=== PATIENT | male | born 1960 | race Two or more races ===

== ENCOUNTER → 2016-11-12 | Outpatient (CLI) | payer OTHER | LOC: M SMT 15:34 | PROVIDERS: ATTEND Nurse Practitioner Women's Health | DX: Z12.5 Encounter for screening for malignant neoplasm of prostate (principal); R31.29 Other microscopic hematuria ==

== ENCOUNTER 2023-07-13 05:48 | Inpatient (IN) | payer MEDICARE ==
[2023-07-13] VITALS (8 sets, daily range): BP systolic 119–135; BP diastolic 59–83; TEMP 97.5–98.2; O2SAT 94–98
[~2023-07-13] VITALS: Ht 182.9 cm; Wt 57.1 kg
[~2023-07-13 05:48] MED LIST: ACET-907 PO; MIRA3350 PO; SENN-23 PO
[2023-07-13] MEDS ORDERED: LR 1,000 ML IV SCH (06:25)
[2023-07-13] MEDS: ALVIMOPAN 12 MG CAPSULE (ENTEREG) PO ONE (07:05)
[2023-07-13] MEDS: CelecoXIB 400 MG CAP PO ONE (07:05)
[2023-07-13] MEDS ORDERED: LIDOCAINE 2% 100MG/5ML SDV (FOR ANES.) As Ordered ONE (07:18)
[2023-07-13] MEDS ORDERED: propofoL 200 MG/20 ML VIAL As Ordered ONE (07:18)
[2023-07-13] MEDS ORDERED: ONDANSETRON 4MG 2ML VIAL As Ordered ONE (07:18)
[2023-07-13] MEDS ORDERED: ROCURONIUM BROMIDE 50MG/5ML VIAL As Ordered ONE (07:18)
[2023-07-13] MEDS ORDERED: ACETAMINOPHEN 1000MG 100ML IV BAG As Ordered ONE (07:19)
[2023-07-13] MEDS ORDERED: fentaNYL 100 MCG/2 ML INJECTION As Ordered ONE (07:19)
[2023-07-13] MEDS ORDERED: KETOROLAC 60MG 2ML VIAL As Ordered ONE (07:19)
[2023-07-13] MEDS ORDERED: MIDAZOLAM INJ 2MG/2ML VIAL As Ordered ONE (07:19)
[2023-07-13] MEDS: ceFAZolin SOD 2 GM in IV 1 EA IV ONE (07:30)
[2023-07-13] MEDS: metroNIDAZOLE 500 MG in IV 1 EA IV ONE (07:33)
[2023-07-13] MEDS: HEPARIN SOD (PORCINE) 5000UNITS/ML 1ML VIAL/SYRINGE SQ ONE (08:26)
[2023-07-13] MEDS ORDERED: HYDROmorphone HCL 2MG/ML 1ML VIAL As Ordered ONE (08:30)
[2023-07-13] MEDS ORDERED: LABETALOL 100MG/20ML VIAL As Ordered ONE (08:33)
[2023-07-13] MEDS ORDERED: dexmedeTOMIDine (4MCG/ML)200MCG/50ML BTL (PRECEDEX) As Ordered ONE (08:43)
[2023-07-13] MEDS ORDERED: INDOCYANINE GREEN 25MG VIAL (IC-GREEN) As Ordered ONE (10:33)
[2023-07-13] MEDS ORDERED: SUGAMMADEX SODIUM 500 MG/5 ML VIAL (BRIDION) As Ordered ONE (11:21)
[2023-07-13] MEDS: ceFAZolin 1GM VIAL As Ordered ONE (11:30)
[2023-07-13] MEDS: LIDOCAINE 1% SDV 30ML VIAL As Ordered ONE (12:08)
[2023-07-13] MEDS ORDERED: MORPHINE 4 MG/ML 1ML VIAL IV PRN (12:35)
[2023-07-13] MEDS ORDERED: NORCO, ANEXSIA 5/325MG TABLET (HYDROcodone/ACETAMINOPHEN) PO PRN (12:35)
[2023-07-13] MEDS ORDERED: ONDANSETRON 4MG 2ML VIAL IV PRN ×2 (12:35→12:55)
[2023-07-13] MEDS: LR 1,000 ML IV SCH ×2 (12:55→14:33)
[2023-07-13] MEDS ORDERED: HYDROMORPHONE HCL 0.5 MG/ 0.5 ML SYRINGE IV PRN (12:55)
[2023-07-13] MEDS ORDERED: oxyCODONE 5MG TAB PO PRN (12:55)
[2023-07-13] MEDS ORDERED: fentaNYL 100 MCG/2 ML INJECTION IV PRN (12:55)
[2023-07-13] MEDS ORDERED: METR-265 PO (15:03)
[2023-07-13] MEDS ORDERED: NEOM500T PO (15:03)
[2023-07-13] MEDS ORDERED: HOME MED LIST COMPLETE! XX SCH (15:05)
[2023-07-13] MEDS: ERYTHROMYCIN OPHTH OINT OD SCH (15:07)
[2023-07-13] MEDS: KETOROLAC 30 MG/ML 1ML VIAL IV SCH (18:09)
[2023-07-13] MEDS: ALVIMOPAN 12 MG CAPSULE (ENTEREG) PO SCH (20:15)
[2023-07-14 04:35] VITALS: BP 135/65; TEMP 98.8; O2SAT 96
[2023-07-14 06:24] LABS: BASO % 0.2 % (0.0-1.0); EOS # 0.2 10^3/uL (0.0-0.5); EOS % 1.3 % (0.0-3.0); HEMATOCRIT 34.9 % (42.0-52.0); HEMOGLOBIN 11.7 g/dl (13.5-17.5); LYMPH # 1.3 10^3/uL (1.5-5.0); LYMPH % 10.3 % (24.0-44.0); MEAN CORPUSCULAR HEMOGLOBIN 29.5 pg (27.0-33.0); MEAN CORPUSCULAR HGB CONC 33.5 g/dl (32.0-36.5); MEAN CORPUSCULAR VOLUME 87.9 fl (80.0-96.0); MONO # 0.9 10^3/uL (0.0-0.8); MONO % 7.1 % (2.0-8.0); NEUTROPHILS # 9.8 10^3/uL (1.5-8.5); NEUTROPHILS % 80.7 % (36.0-66.0); PLATELET COUNT, AUTOMATED 203 10^3/uL (150-450); RED BLOOD COUNT 3.97 10^6/uL (4.30-6.10); WHITE BLOOD COUNT 12.2 10^3/uL (4.0-10.0)
[2023-07-14 06:52] LABS: CALCIUM LEVEL 8.4 MG/DL (8.3-10.6); CREATININE FOR GFR 1.35 MG/DL (0.70-1.30); GLOMERULAR FILTRATION RATE 56.5 (>49); POTASSIUM SERUM 4.6 MMOL/L (3.5-5.1)
[2023-07-14 07:34] VITALS: O2SAT 91
[2023-07-14 08:00] VITALS: BP 146/70; TEMP 99; O2SAT 99
[2023-07-14] MEDS: ENOXAPARIN 40MG/0.4ML SYRINGE (J1650 PER 10MG) SC SCH (09:31)
[2023-07-14 12:00] VITALS: BP 139/66; TEMP 98.4; O2SAT 95
[2023-07-14 14:00] VITALS: BP 156/70; TEMP 98.4; O2SAT 93
[2023-07-14] MEDS: NORCO, ANEXSIA 5/325MG TABLET (HYDROcodone/ACETAMINOPHEN) PO PRN (16:15)
[2023-07-14 20:23] VITALS: BP 145/65; TEMP 99; O2SAT 92
[2023-07-15 04:38] VITALS: BP 150/76; TEMP 98.6; O2SAT 96
[2023-07-15 06:26] LABS: BASO # 0.1 10^3/uL (0.0-0.2); BASO % 0.7 % (0.0-1.0); EOS # 0.4 10^3/uL (0.0-0.5); EOS % 3.9 % (0.0-3.0); HEMATOCRIT 32.2 % (42.0-52.0); HEMOGLOBIN 10.9 g/dl (13.5-17.5); LYMPH # 1.3 10^3/uL (1.5-5.0); LYMPH % 14.2 % (24.0-44.0); MEAN CORPUSCULAR HEMOGLOBIN 29.3 pg (27.0-33.0); MEAN CORPUSCULAR HGB CONC 33.9 g/dl (32.0-36.5); MEAN CORPUSCULAR VOLUME 86.6 fl (80.0-96.0); MONO # 0.7 10^3/uL (0.0-0.8); MONO % 7.3 % (2.0-8.0); NEUTROPHILS # 6.6 10^3/uL (1.5-8.5); NEUTROPHILS % 73.5 % (36.0-66.0); PLATELET COUNT, AUTOMATED 184 10^3/uL (150-450); RED BLOOD COUNT 3.72 10^6/uL (4.30-6.10)
[2023-07-15 06:52] LABS: BLOOD UREA NITROGEN 32 MG/DL (9-23); CALCIUM LEVEL 8.4 MG/DL (8.3-10.6); CARBON DIOXIDE LEVEL 29 MMOL/L (20-31); CHLORIDE LEVEL 108 MMOL/L (98-107); CREATININE FOR GFR 1.23 MG/DL (0.70-1.30); GLOMERULAR FILTRATION RATE > 60.0 (>49); GLUCOSE, FASTING 85 MG/DL (74-106); POTASSIUM SERUM 4.5 MMOL/L (3.5-5.1); SODIUM LEVEL 140 MMOL/L (136-145)
[2023-07-15 14:00] VITALS: BP 166/82; TEMP 99; O2SAT 97
[2023-07-16 06:25] LABS: BASO % 0.5 % (0.0-1.0); EOS # 0.4 10^3/uL (0.0-0.5); HEMATOCRIT 33.7 % (42.0-52.0); HEMOGLOBIN 11.6 g/dl (13.5-17.5); LYMPH # 0.9 10^3/uL (1.5-5.0); LYMPH % 12.8 % (24.0-44.0); MEAN CORPUSCULAR HEMOGLOBIN 29.4 pg (27.0-33.0); MEAN CORPUSCULAR HGB CONC 34.4 g/dl (32.0-36.5); MEAN CORPUSCULAR VOLUME 85.3 fl (80.0-96.0); MONO # 0.6 10^3/uL (0.0-0.8); MONO % 8.6 % (2.0-8.0); NEUTROPHILS # 5.3 10^3/uL (1.5-8.5); NEUTROPHILS % 72.8 % (36.0-66.0); PLATELET COUNT, AUTOMATED 174 10^3/uL (150-450); RED BLOOD COUNT 3.95 10^6/uL (4.30-6.10); WHITE BLOOD COUNT 7.3 10^3/uL (4.0-10.0)
[2023-07-16 06:27] VITALS: BP 140/86; TEMP 98.8; O2SAT 96
[2023-07-16] MEDS ORDERED: IBUP-1022 PO (11:03)
[2023-07-16] MEDS ORDERED: TRAM50TA2 PO (11:03)
== END 2023-07-16 12:55 | disposition home or self-care (01) | DRG 330 ==
LOC: M OR 05:48 → M MSPAV 13:58
PROVIDERS: ADMIT Surgery; ATTEND Surgery
PROC: 8E0W4CZ Robotic Assisted Procedure of Trunk Region, Percutaneous Endoscopic Approach (ICD-10-PCS; 2023-07-13)
PROC: 0DTN4ZZ Resection of Sigmoid Colon, Percutaneous Endoscopic Approach (ICD-10-PCS; principal; 2023-07-13 07:30)
DX: K56.699 Other intestinal obstruction unspecified as to partial versus complete obstruction (principal); K57.32 Diverticulitis of large intestine without perforation or abscess without bleeding; F17.210 Nicotine dependence, cigarettes, uncomplicated; Z11.52 Encounter for screening for COVID-19